=== PATIENT | male | born 1975 | race Caucasian/White ===

== ENCOUNTER 2017-02-05 15:48 | Inpatient (IN) ==
[2017-02-05] MEDS ORDERED: HEPARIN/NACL 0.9% 2 UNITS/ML 1,000 ML IV ONE (16:25)
[2017-02-05] MEDS ORDERED: LIDOCAINE 1%/EPI INJ 20 ML VIAL ONE (16:26)
--- NOTE | 2017-02-05 16:45 | History and Physical Update ---
Sedation H&P Update - History and Physical H&P was reviewed, the patient examined and there: are no changes in the patients condition since last H&P was completed. - Physical Exam Mental Status: alert and oriented Heart: regular rate and rhythm Lung: clear to auscultation Abdomen: within normal limits Vitals: within normal limits - Sedation Plan for Sedation: moderate Patient Consent: Procedure disscussed with patient and patinet has consented., Risks and benefits were discussed with patient,including infection,, bleeding, injury to surrounding structures, seizure, temporary nerve, Patient understands and accepts potential risks/benefits and agrees to, proceed. ASA Class: IV Airway Assessment: Class III: Soft palate, base of uvula visible
[2017-02-05] MEDS ORDERED: HYDROmorphone 2 MG/1 ML VIAL ONE (17:05)
[2017-02-05] MEDS ORDERED: fentaNYL 100 MCG/2 ML VIAL ONE (17:05)
[2017-02-05] MEDS ORDERED: ALTEPLASE 2 MG VIAL ONE (17:30)
[2017-02-05] MEDS ORDERED: ALTEPLASE 12 MG in SODIUM CHLORIDE 0.9% 240 ML IV ONE ×2 (17:39→17:42)
[2017-02-05] MEDS ORDERED: HEPARIN 5,000 UNIT/1 ML VIAL ONE (17:50)
[2017-02-05] MEDS ORDERED: NOREPINEPHRINE 4 MG/4 ML VIAL IV ONE (17:53)
--- NOTE | 2017-02-05 17:56 | Cardiac Catheterization ---
Date of Procedure:: 02/05/17 Pre-op Diagnosis: 41-year-old man who has a history of moderate chronic renal insufficiency presents with a syncopal episode that happened at 1230 today. By evaluation in the emergency room it appears fairly clear that the patient was suffering from pulmonary thromboembolic disease. He had a hypotensive episode responded to phenylephrine and IV fluids. His d-dimer was elevated and his echo showed right ventricular dilatation and the diagnosis was felt to be pulmonary thromboembolic disease. Because of his renal failure he was not a candidate for CT scan. He is for echoes catheter placement as this patient likely has a massive pulmonary embolus. He is critically ill and will benefit from thrombolysis and EKOS catheter placement. Post-op diagnosis: same Procedure: Description of procedure: Procedure performed: 1: Bilateral ekos catheter placement right and left pulmonary artery Description of procedure: After obtaining informed consent the patient was brought to the [facility] with a right groin was prepped and draped in the usual sterile manner. After local infiltration of anesthetic and intravenous sedation a needle stick was made to the right femoral vein and a 12 [place] venous sheath with two hemostatic ports was placed in the right femoral vein. Using a angled pigtail catheter and a J- wire the left main pulmonary artery was wired and the wire was extended to a segmental pulmonary artery on the left. This wire was maintained in place while the pigtail catheter was removed from the wire and an infusion catheter was advanced over the wire and positioned with its tip in a distal segmental pulmonary artery. This catheter was then connected to coolant infusion. Next using the other hemostatic access a second J-wire was placed using a angled pigtail catheter and positioned with its tip in a segmental right pulmonary artery. An infusion catheter was advanced over this J-wire and it was placed in the segmental right pulmonary artery. At this point tPA was infused in both the right and left drug ports. Next the ultrasound wires were placed through the coolant sheaths for both the right and left sides. Fluoroscopy confirmed good positioning and coolant was infusing as well as tPA. The patient was noted to be hypotensive and responded to intravenous fluids and Levophed and became hemodynamically stable and was transferred to the intensive care unit in stable condition. Please see the orders related to drug dosing and infusion sites. Surgeon / Physician: Cornelio Price Estimated blood loss: minimal Specimens: none sent Condition: stable - Medications / Follow-up
[2017-02-05] MEDS ORDERED: SODIUM CHLORIDE 0.9% 1,000 ML IV SCH ×2 (18:00→18:30)
[2017-02-05] MEDS ORDERED: ONDANSETRON 4 MG/2 ML VIAL IV PRN (18:08)
[2017-02-05] MEDS ORDERED: ALTEPLASE 12 MG in SODIUM CHLORIDE 0.9% 240 ML IV SCH (18:30)
[2017-02-05] MEDS ORDERED: NOREPINEPHRINE 8 MG in SODIUM CHLORIDE 0.9% 242 ML IV SCH (18:30)
[2017-02-05] MEDS ORDERED: HEPARIN DRIP 25,000 UNITS/500 ML PREMIX IV SCH (18:30)
[2017-02-05] MEDS: MORPHINE 2 MG/1 ML SYRINGE IV PRN ×2 (19:15→21:12)
[2017-02-05 19:31] LABS: PT Patient Result 10.3 SECS; Partial Thromboplastin Time 37.2 SECS (0-40)
[2017-02-05 19:41] LABS: Apearance,Urine CLOUDY (Clear); Bacteria,Urine Occasional /HPF (Few); Bilirubin,Urine Negative (Negative); Blood, Urine Small mg/dL (Negative); Glucose,Urine (UA) >=500 mg/dL (Negative); Ketones,Urine Negative (Negative); Mucus,Urine Occasional /LPF (Occasional); Nitrite,Urine Negative (Negative); Protein,Urine >=500 MG/DL; RBC,Urine 1 /HPF (0-4); Urine Color Yellow (Yellow); Urine Specific Gravity 1.024 (1.001-1.035); Urine Urobilinogen < 2.0 EU/DL (0.2-1.0); WBC,Urine 2 /HPF (0-6)
[2017-02-05] MEDS: DEXTROSE 5% NACL 0.9% 1,000 ML IV SCH (21:18)
[2017-02-06] MEDS: MORPHINE 2 MG/1 ML SYRINGE IV PRN (00:10)
[2017-02-06 03:02] LABS: Basophils # 0.1 10*3/uL (0.0-0.2); Basophils % 0.3 % (0.0-0.8); Eosinophils % 0.2 % (0.00-10.9); Hematocrit 48.2 VOL% (42.0-52.0); Hemoglobin 14.9 GM/DL (14.0-18.0); Immature Granulocytes % 5.7 %; Immature Granulocytes Absolute 1.35 #; Lymphocytes # 2.4 10*3/uL (1.4-4.0); Lymphocytes % 10.2 % (21.2-54.2); Mean Corpuscular HGB Conc 30.9 GM/DL (32-36); Mean Corpuscular Hemoglobin 30 PG (27-34); Mean Corpuscular Volume 95.8 FL (87-102); Mean Platelet Volume 10.3 FL (9.6-12.0); Monocytes # 1.5 10*3/uL (0.11-0.8); Monocytes % 6.1 % (1.7-12.7); NRBC # 0.04 10*3/uL; Neutrophils # 18.4 10*3/uL (1.4-7.4); Neutrophils % 77.5 % (38.7-73.9); Platelet Count 160 T/CUMM (130-400); Red Blood Count 5.03 MC/CUMM (3.8-5.5); Red Cell Distribution Width 13.5 % (9.3-17.3); White Blood Count 23.7 T/CUMM (4-12)
[2017-02-06] MEDS ORDERED: PHENYLEPHRINE DRIP 40 MG/250 ML PREMIX IV ONE (03:07)
[2017-02-06 03:11] LABS: INR 1.3
[2017-02-06] MEDS ORDERED: PHENYLEPHRINE DRIP 40 MG/250 ML PREMIX IV SCH (03:30)
[2017-02-06] MEDS ORDERED: MIDAZOLAM 10 MG/2 ML VIAL ONE (03:40)
[2017-02-06 03:44] LABS: Albumin 1.9 G/DL (3.4-5.0); Bilirubin,Total 0.6 MG/DL (0.2-1.0); Calcium 7.2 MG/DL (8.5-10.1); Osmolality,Calculated 296.3 MOS/KG (273-304); Potassium 5.8 MMOL/L (3.5-5.1)
[2017-02-06 03:45] LABS: ABG Base Excess -22.2 MMOL/L (-2.5-2.5); ABG HCO3 9.3 MMOL/L (20-26); ABG Oxygen Saturation 98.1 % (95-100); ABG PCO2 48.2 MM HG (35-48); ABG TCO2 10.5 MMOL/L (23-27); Allen Test Positive; Pt O2 Delivery Device BIPAP
--- NOTE | 2017-02-06 03:45 | Pulmonology Consult Note ---
Assessment and Plan (1) Submassive pulmonary embolism Status: Acute Assessment and plan: Blood pressures dropped. Requiring full dose pressures and oxygen. Will intubate. Have discussed the case with cardiovascular surgery to see if embolectomy by be needed in order. Discussed case with patient's . Current Visit: Yes (2) Cardiogenic shock Status: Acute Assessment and plan: On full dose Levophed. Getting IV fluids. Chest x-ray clear he does not wet. Current Visit: Yes (3) Renal insufficiency Status: Acute Assessment and plan: Creatinine around 2. History of renal insufficiency. Good urine output. Labs pending this morning. Current Visit: Yes History of Present Illness Chief complaint: Pulmonary embolus History of present illness: Mr. Diggs is a 41 year old male who had a syncopal episode near midday yesterday. He was found to have a large pulmonary embolus. He was taken to the [facility] and had Activase infusion started. He is become hypotensive early this morning with a systolic blood pressure in the mid 70s and severe hypoxemia. At present his O2 sat is 92% on night BiPAP 100% oxygen. He has chronic renal insufficiency and hypertension but no other significant underlying medical problems that the is aware of. Patient is responsive but struggling. He needs intubation. May need an embolectomy. Will ask cardiovascular surgery to see. Home Medications Medication Instructions Recorded Confirmed Type Verapamil Tab [Calan Tab] 40 mg PO BID 07/29/16 10/06/16 History Butalbital/Acet/Caff 50-325-40 1 tablet PO Q4H PRN 10/06/16 10/06/16 History [Fioricet 50-325-40 mg Tablet] Dextroamphetamine/Amphetamine 30 mg PO BID 10/06/16 10/06/16 History [Adderall 30 mg Tablet] Guaifenesin [Guaifenesin ER] 600 mg PO BID PRN #30 tab.er.12h 10/06/16 Rx hydroCHLOROthiazide 12.5 mg PO QAM 10/06/16 10/06/16 History [Hydrochlorothiazide] Allergies Allergy/AdvReac Type Severity Reaction Status Date / Time ibuprofen AdvReac Severe Unknown/Unable Verified 10/06/16 18:36 to obtain ROS unobtainable: due to mental status ( reports that patient had chest pain 2 days ago and had a normal EKG at that time) Exam (Pulmonay) H&P - Constitutional Vitals: Period Temp Pulse Resp BP Sys/Bar Pulse Ox Last 24 Hr 97 F-97.4 F 115-148 19-29 61-127/32-117 93-100 Exam: Blood pressure 75/60 pulse 120 afebrile. Patient responsive but tachypneic. Pupils reactive. Facemask BiPAP in place. Neck is supple. Chest sounds clear. Heart normal rate rhythm no murmurs. Abdomen soft nontender. Extremities no clubbing cyanosis or edema. Calves nontender. Medical,Surgical,& Family Hx - Medical History Cardio: History of: Hypertension Psychological: History of: ADHD Neurology: History of: Migraine No history of: Brain Aneurysm, Cerebral Hemorrhage, Cerebrovascular Accident , Cerebral Palsy, Dementia, Multiple Sclerosis, Parkinson's Disease, Peripheral Neuropathy, Seizures, TIA, Vertigo, Neurologocal Cancer Respiratory: No history of: Obstructive Sleep Apnea, Respiratory Problems - Surgical History Cardiac Surgeries: Patient Denies: Femoral-Popliteal Bypass Graft, Cardiac Catheterization, Cardiac Surgery, Carotid Endarterectomy, Internal Defibrillator, Vascular Access Devices Thoracic Surgeries: Patient denies;: Lobectomy Neurologic Surgeries: Patient denies: Brain Aneurysm, Cerebral Hemorrhage, Neurologic Surgery HEENT Surgeries: Patient denies: Carotid Endarterectomy, Eye Surgery, Tonsilectomy & Adenoidectomy Abdominal Surgeries: Patient denies: Abdominal Surgery, Appendectomy, Cholecystectomy, Colonoscopy , Gastric Bypass Surgery, EGD, Hernia Repair, Splenectomy Orthopedic Surgeries: Patient denies;: Total Knee Replacement - Social History Smoking Status: Never smoker Frequency of Alcohol Use: None Type of Drug Use: None Results - Labs CBC & BMP: 02/06/17 02:55 - Diagnostic Findings Procedure: Chest x-ray: image reviewed by me (Lungs are clear)
[2017-02-06 03:48] LABS: ABG PH 6.966 (7.35-7.45)
[2017-02-06 03:49] LABS: Troponin I Only 9.78 NG/ML (0.00-0.045)
[2017-02-06] MEDS ORDERED: ETOMIDATE 20 MG/10 ML VIAL IV ONE (03:50)
[2017-02-06] MEDS ORDERED: DOPamine 800 MG/250 ML PREMIX IV SCH (04:00)
[2017-02-06] MEDS ORDERED: SODIUM BICARBONATE 50 MEQ/50 ML SYRINGE IV ONE ×2 (04:02→04:03)
[2017-02-06] MEDS ORDERED: DOPamine 800 MG/250 ML PREMIX IV ONE (04:02)
--- NOTE | 2017-02-06 04:16 | Operative Note ---
Date of procedure: 02/06/17 (Orotracheal intubation) Pre-op diagnosis: Respiratory failure, pulmonary embolus Post-op diagnosis: same Procedure: After an appropriate timeout to be sure we were dealing with Jean-Claude Diggs, the patient was improved with 100% oxygen. 2 mg of Versed was given intravenously. Using the glide scope 7.5 [place] orotracheal tube was advanced into the vocal cords under direct vision. Color change on the CO2 monitor was appropriate yellow to purple. Chest x-ray showed ET tube tube tip about 2-3 cm above the monica. Lungs clear on x-ray. Patient placed on mechanical ventilation. Anesthesia: conscious sedation Surgeon / Physician: Sal Hawkins Estimated blood loss: none Specimens: none sent Condition: critical Disposition: ICU (Actually cc) Results - Labs CBC & BMP: 02/06/17 02:55 02/06/17 02:55 Discharge Plan - Discharge Medications No Action Verapamil Tab [Calan Tab] 40 mg PO BID Butalbital/Acet/Caff 50-325-40 [Fioricet 50-325-40 mg Tablet] 1 tablet PO Q4H PRN PRN Reason: Headache Dextroamphetamine/Amphetamine [Adderall 30 mg Tablet] 30 mg PO BID hydroCHLOROthiazide [Hydrochlorothiazide] 12.5 mg PO QAM Guaifenesin [Guaifenesin ER] 600 mg PO BID PRN #30 tab.er.12h PRN Reason: Cough - Follow Up or Referral - Forms/Instructions
[2017-02-06 04:19] LABS: Band Neutrophils 1 % (0-10); Eosinophils 1 % (0-10); Lymphocytes 11 % (20-55); Myelocytes 1 %; Segmented Neutrophils 80 % (50-85)
[2017-02-06 04:20] LABS: Platelet Estimate Normal
[2017-02-06 04:21] LABS: Atypical Lymphocytes Few; Polychromasia Few; Total Cells Counted 100
--- NOTE | 2017-02-06 04:21 | Cardiothoracic Consult ---
Assessment and Plan - Time spent with patient Time spent with patient: Greater than 30 minutes (1) Submassive pulmonary embolism Status: Acute Assessment and plan: 41-year-old male with submassive pulmonary embolism in the distal left main/ lobar pulmonary artery. He has ongoing infusion of TPA as well as heparin drip. Upon my evaluation he was found to have hypotension however he continues to have acceptable oxygenation at this point. I had a discussion with Dr. Price on the phone as well as Dr. Hawkins. My understanding since there is no CT scan that the pulmonary embolus is in the distal left main/lobar pulmonary artery. With the patient having ongoing TPA as well as heparin drip and the embolus is not proximal and the main pulmonary artery I felt that the best chance that the patient would have is to continue infusion of the TPA with management of his hemodynamics accordingly. With him having ongoing TPA and heparin drip he would be a very high risk for bleeding and with embolus being distal as described by the cath report I feel that pulmonary embolectomy would not be of help to this patient. Current Visit: Yes History of Present Illness - Data of Consult Patient: new to practice Consult date: 02/06/17 - Consult Narrative Reason for consult: PE History of present illness: Mr. Diggs is a 41 year old male who was found to have pulmonary embolus. The patient had a syncopal episode and on arriving to the ER his workup revealed a right cardiac strain and across CABG he did not get a CT scan and he was taken to the [facility] and he was found to have a distal left main/lobar pulmonary artery embolus. With the use of a close catheter he has ongoing TPA. He deteriorated significantly in the past few minutes and they got called for evaluation for possible pulmonary embolectomy. CC: Cornelio Price MD - Home Medications and Allergies Home Medications: Home Medications Medication Instructions Recorded Confirmed Type Verapamil Tab [Calan Tab] 40 mg PO BID 07/29/16 10/06/16 History Butalbital/Acet/Caff 50-325-40 1 tablet PO Q4H PRN 10/06/16 10/06/16 History [Fioricet 50-325-40 mg Tablet] Dextroamphetamine/Amphetamine 30 mg PO BID 10/06/16 10/06/16 History [Adderall 30 mg Tablet] Guaifenesin [Guaifenesin ER] 600 mg PO BID PRN #30 tab.er.12h 10/06/16 Rx hydroCHLOROthiazide 12.5 mg PO QAM 10/06/16 10/06/16 History [Hydrochlorothiazide] Allergies/Adverse Reactions: Allergies Allergy/AdvReac Type Severity Reaction Status Date / Time ibuprofen AdvReac Severe Unknown/Unable Verified 10/06/16 18:36 to obtain ROS unobtainable: due to endotracheal tube Medical,Surgical,& Family Hx - Medical History Cardio: History of: Hypertension Psychological: History of: ADHD Neurology: History of: Migraine No history of: Brain Aneurysm, Cerebral Hemorrhage, Cerebrovascular Accident , Cerebral Palsy, Dementia, Multiple Sclerosis, Parkinson's Disease, Peripheral Neuropathy, Seizures, TIA, Vertigo, Neurologocal Cancer Respiratory: No history of: Obstructive Sleep Apnea, Respiratory Problems - Surgical History Cardiac Surgeries: Patient Denies: Femoral-Popliteal Bypass Graft, Cardiac Catheterization, Cardiac Surgery, Carotid Endarterectomy, Internal Defibrillator, Vascular Access Devices Thoracic Surgeries: Patient denies;: Lobectomy Neurologic Surgeries: Patient denies: Brain Aneurysm, Cerebral Hemorrhage, Neurologic Surgery HEENT Surgeries: Patient denies: Carotid Endarterectomy, Eye Surgery, Tonsilectomy & Adenoidectomy Abdominal Surgeries: Patient denies: Abdominal Surgery, Appendectomy, Cholecystectomy, Colonoscopy , Gastric Bypass Surgery, EGD, Hernia Repair, Splenectomy Orthopedic Surgeries: Patient denies;: Total Knee Replacement - Social History Smoking Status: Never smoker Frequency of Alcohol Use: None Type of Drug Use: None Physical Examination Vital Signs Pulse Resp BP Pulse Ox 148 H 28 H 106/62 94 L 02/05/17 16:30 02/05/17 16:30 02/05/17 16:30 02/05/17 16:30 Neck: Present: Supple Neck Cardiac: Present: Regular Rate, Regular Rhythm, Tachycardia Result/EKG - Labs CBC & BMP: 02/06/17 02:55 02/06/17 02:55 Labs: Laboratory Results - last 24 hr 02/05/17 02/05/17 02/05/17 18:30 19:10 21:35 WBC RBC Hgb Hct MCV MCH MCHC RDW Plt Count MPV Neut % (Auto) Lymph % (Auto) Nicholas % (Auto) Eos % (Auto) Baso % (Auto) Neut # (Auto) Lymph # (Auto) Nicholas # (Auto) Eos # (Auto) Baso # (Auto) Immature Gran % Nucleated RBC % Immature Gran # Nucleated RBCs # INR 1.0 PT Patient/Control Mix 10.3 Fibrinogen 481 H Circ Anticoag PTT 37.2 ABG pH ABG pCO2 ABG pO2 ABG HCO3 ABG Total CO2 ABG O2 Saturation ABG Base Excess FiO2 Sodium Potassium Chloride Carbon Dioxide Anion Gap BUN Creatinine GFR Calculation BUN/Creatinine Ratio Glucose Calculated Osmolality Calcium Total Bilirubin Alkaline Phosphatase Troponin I 7.550 H Total Protein Albumin Globulin Albumin/Globulin Ratio Urine Color Yellow Urine Appearance Cloudy Urine pH 5.0 Ur Specific [place] 1.024 Urine Protein >=500 Urine Glucose (UA) >=500 Urine Ketones Negative Urine Blood Small Urine Nitrate Negative Urine Bilirubin Negative Urine Urobilinogen < 2.0 H Urine Leukocytes Negative Urine RBC 1 Urine WBC 2 Urine Bacteria Occasional Urine Mucus Occasional Ur Culture Indicated? Not indicated 02/06/17 02/06/17 02/06/17 02:55 02:55 02:55 WBC 23.7 H RBC 5.03 Hgb 14.9 Hct 48.2 MCV 95.8 MCH 30 MCHC 30.9 L RDW 13.5 Plt Count 160 MPV 10.3 Neut % (Auto) 77.5 H Lymph % (Auto) 10.2 L Nicholas % (Auto) 6.1 Eos % (Auto) 0.2 Baso % (Auto) 0.3 Neut # (Auto) 18.4 H Lymph # (Auto) 2.4 Nicholas # (Auto) 1.5 H Eos # (Auto) 0.0 Baso # (Auto) 0.1 Immature Gran % 5.7 Nucleated RBC % 0.2 Immature Gran # 1.35 Nucleated RBCs # 0.04 INR 1.3 PT Patient/Control Mix 14.0 D Fibrinogen Circ Anticoag PTT ABG pH ABG pCO2 ABG pO2 ABG HCO3 ABG Total CO2 ABG O2 Saturation ABG Base Excess FiO2 Sodium 141 Potassium 5.8 H Chloride 110 H Carbon Dioxide 13 L Anion Gap 23.8 H BUN 41 H Creatinine 4.30 H GFR Calculation 20 BUN/Creatinine Ratio 9.00 Glucose 209 H Calculated Osmolality 296.3 Calcium 7.2 L Total Bilirubin 0.60 Alkaline Phosphatase 49 Troponin I 9.780 H D Total Protein 5.0 L Albumin 1.9 L Globulin 3.1 Albumin/Globulin Ratio 0.6 L Urine Color Urine Appearance Urine pH Ur Specific [place] Urine Protein Urine Glucose (UA) Urine Ketones Urine Blood Urine Nitrate Urine Bilirubin Urine Urobilinogen Urine Leukocytes Urine RBC Urine WBC Urine Bacteria Urine Mucus Ur Culture Indicated? 02/06/17 03:28 WBC RBC Hgb Hct MCV MCH MCHC RDW Plt Count MPV Neut % (Auto) Lymph % (Auto) Nicholas % (Auto) Eos % (Auto) Baso % (Auto) Neut # (Auto) Lymph # (Auto) Nicholas # (Auto) Eos # (Auto) Baso # (Auto) Immature Gran % Nucleated RBC % Immature Gran # Nucleated RBCs # INR PT Patient/Control Mix Fibrinogen Circ Anticoag PTT ABG pH 6.966 L* ABG pCO2 48.2 H ABG pO2 248.0 H ABG HCO3 9.3 L ABG Total CO2 10.5 L ABG O2 Saturation 98.1 ABG Base Excess -22.2 L FiO2 100.00 Sodium Potassium Chloride Carbon Dioxide Anion Gap BUN Creatinine GFR Calculation BUN/Creatinine Ratio Glucose Calculated Osmolality Calcium Total Bilirubin Alkaline Phosphatase Troponin I Total Protein Albumin Globulin Albumin/Globulin Ratio Urine Color Urine Appearance Urine pH Ur Specific [place] Urine Protein Urine Glucose (UA) Urine Ketones Urine Blood Urine Nitrate Urine Bilirubin Urine Urobilinogen Urine Leukocytes Urine RBC Urine WBC Urine Bacteria Urine Mucus Ur Culture Indicated?
--- NOTE | 2017-02-06 04:22 | Event Note ---
Discussed case with Dr. Renan Andres who came and reviewed the patient. Pulmonary emboli or apparently to distal to consider surgery. I agree with this. At the present time his systolic blood pressure has come up to 113 with Levophed and dopamine. We have given bicarb to correct his acidosis. He has worsening renal function with creatinine up to 4.3. Will ask nephrology to see this morning.
[2017-02-06] MEDS ORDERED: VECURONIUM 10 MG VIAL IV ONE ×2 (04:28→04:30)
[2017-02-06] MEDS ORDERED: SODIUM ACETATE 100 MEQ in DEXTROSE 5% 1,000 ML IV SCH (05:00)
[2017-02-06] MEDS ORDERED: MIDAZOLAM 100 MG in SODIUM CHLORIDE 0.9% 80 ML IV SCH (05:00)
--- NOTE | 2017-02-06 05:13 | Event Note ---
Patient had cardiac arrest at about 0440. CPR undertaken with closed chest massage and multiple doses of epinephrine as well as bicarb. Was on Levophed and dopamine infusion. Patient never had a pulse on his own and after brief pulseless electrical activity did not have any further rectal activity. After 25 minutes of CPR his pupils were dilated and fixed and he was totally unresponsive. Had no spontaneous pulse. CPR was discontinued patient at approximately 0505. I discussed the case with patient's family. Dr. Price has discussed with them as well. Cause of was cardiac arrest secondary to massive pulmonary embolism.
--- NOTE | 2017-02-06 05:27 | Cardiology History & Physical ---
Assessment and Plan (1) Cardiogenic shock Status: Acute Assessment and plan: Patient has severe pulmonary hypertension and cardiogenic hypotension related to a large/massive pulmonary embolus. He is being treated aggressively with local thrombolysis and anticoagulation. Current Visit: Yes (2) Renal insufficiency Status: Acute Assessment and plan: Creatinine reported previously of 2.4. Lab work here is pending. Current Visit: Yes (3) Submassive pulmonary embolism Status: Acute Assessment and plan: Patient has been diagnosed with a submassive pulmonary embolus. He is hypotensive requiring pressors for support. He is critically ill. Current Visit: Yes History of Present Illness Chief complaint: I am short of breath and hurting in my chest History of present illness: Mr. Diggs is a 41 year old male who apparently has a history of chronic renal insufficiency with creatinines in the 2.4 range. He presented to [facility] with severe shortness of breath and having had a syncopal episode at roughly 12:30 PM on 05 February. Workup there revealed negative lower extremity venous Dopplers and echocardiogram that showed a massively enlarged right ventricle with normal LV function and an elevated d-dimer. The emergency room physician at [facility] felt that this strongly indicated presence of a large pulmonary embolus. Based on right ventricular size it appeared to be a large main pulmonary artery embolus. Patient was hypotensive and tachycardic responded to intravenous Levophed. Because of the patient's renal insufficiency was felt that he was not a candidate for CT PA gram and the clinical suspicion was so high that we were called to perform localized treatment of the pulmonary embolus with tissue plasminogen after activator and local echo treatment to break up the thrombus. This was performed with an EKOS catheter which was performed without difficulty. The patient was hypotensive post procedure and for that reason we obtained an echocardiogram just to be certain there was not evidence of a pericardial effusion and there was no evidence of an effusion. LV function appeared to be normal. The right ventricle continued massively enlarged. Prior to placement of the thrombolytic and ultrasound catheters we did inject a small amount of contrast to obtain a diagnosis and by 20 cc injection a large filling defect was noted on the left side consistent with thrombus. The patient now is critically ill requiring pressors for blood pressure support currently. Findings and plans for treatment were discussed with the family. Home Medications Medication Instructions Recorded Confirmed Type Verapamil Tab [Calan Tab] 40 mg PO BID 07/29/16 10/06/16 History Butalbital/Acet/Caff 50-325-40 1 tablet PO Q4H PRN 10/06/16 10/06/16 History [Fioricet 50-325-40 mg Tablet] Dextroamphetamine/Amphetamine 30 mg PO BID 10/06/16 10/06/16 History [Adderall 30 mg Tablet] Guaifenesin [Guaifenesin ER] 600 mg PO BID PRN #30 tab.er.12h 10/06/16 Rx hydroCHLOROthiazide 12.5 mg PO QAM 10/06/16 10/06/16 History [Hydrochlorothiazide] Allergies Allergy/AdvReac Type Severity Reaction Status Date / Time ibuprofen AdvReac Severe Unknown/Unable Verified 10/06/16 18:36 to obtain Medical,Surgical,& Family Hx - Medical History Cardio: History of: Hypertension Psychological: History of: ADHD Neurology: History of: Migraine No history of: Brain Aneurysm, Cerebral Hemorrhage, Cerebrovascular Accident , Cerebral Palsy, Dementia, Multiple Sclerosis, Parkinson's Disease, Peripheral Neuropathy, Seizures, TIA, Vertigo, Neurologocal Cancer Respiratory: No history of: Obstructive Sleep Apnea, Respiratory Problems - Surgical History Cardiac Surgeries: Patient Denies: Femoral-Popliteal Bypass Graft, Cardiac Catheterization, Cardiac Surgery, Carotid Endarterectomy, Internal Defibrillator, Vascular Access Devices Thoracic Surgeries: Patient denies;: Lobectomy Neurologic Surgeries: Patient denies: Brain Aneurysm, Cerebral Hemorrhage, Neurologic Surgery HEENT Surgeries: Patient denies: Carotid Endarterectomy, Eye Surgery, Tonsilectomy & Adenoidectomy Abdominal Surgeries: Patient denies: Abdominal Surgery, Appendectomy, Cholecystectomy, Colonoscopy , Gastric Bypass Surgery, EGD, Hernia Repair, Splenectomy Orthopedic Surgeries: Patient denies;: Total Knee Replacement - Social History Smoking Status: Never smoker Frequency of Alcohol Use: None Type of Drug Use: None Cardiology Physical Exam - Constitutional Vitals: Vital Signs Temp Pulse Resp BP Pulse Ox 97 F L 117 H 19 75/63 100 02/06/17 00:00 02/06/17 01:41 02/06/17 01:00 02/06/17 01:41 02/06/17 00:00 Intake and Output 02/05/17 02/05/17 02/06/17 15:59 23:59 07:59 Intake Total 100 / 100 Output Total 35 / 35 0 / 0 Balance 65 / 65 0 / 0 Intake: IV 100 / 100 Levophed 8 mg In Ns 242 100 / 100 ml @ 2 MCG/MIN 3.75 mls/ hr IV TITRATE XIMENA Rx#: [id number] Output: Urine 35 / 35 0 / 0 Other: Voiding Method Indwelling Catheter Indwelling Catheter # Bowel Movements 0 Weight 104 kg Exam: Physical examination: General: The patient is awake and alert and oriented -3. Patient complains of pleuritic chest pain and dyspnea HEENT: Normocephalic, sclera are clear there are no lid xanthelasmas noted. Oral mucosa is free of cyanosis or pallor. Neck: The neck is supple without JVD. Carotid upstrokes are normal volume and amplitude. There is no audible bruit. There is no palpable thyroid. Trachea is midline. Chest: Lungs: The patient is in moderate respiratory distress. There are no inspiratory or expiratory rales or wheezes noted. Noted. Cardiovascular: The PMI is nondisplaced. There is a tachycardic rhythm. No murmur or rub is noted. S2 is increased. Abdomen: Abdomen is soft and nontender with normal active bowel sounds. There is no palpable mass or organomegaly noted. There is no midline bruit. Extremities exam: There is no cyanosis clubbing or edema. Skin: Skin is warm and dry without ecchymosis or urticaria or skin rash. There are no palpable nodules. Musculoskeletal: There is no kyphosis or scoliosis noted. Result/EKG - Labs CBC & BMP: 02/06/17 02:55 02/06/17 02:55 Labs: Laboratory Results - last 24 hr 02/05/17 02/05/17 02/05/17 18:30 19:10 21:35 WBC RBC Hgb Hct MCV MCH MCHC RDW Plt Count MPV Neut % (Auto) Lymph % (Auto) [place] % (Auto) Eos % (Auto) Baso % (Auto) Neut # (Auto) Lymph # (Auto) [place] # (Auto) Eos # (Auto) Baso # (Auto) Total Counted Immature Gran % Nucleated RBC % Immature Gran # Segmented Neutrophils Band Neutrophils Lymphocytes Monocytes Eosinophils Myelocytes Nucleated RBCs # Atypical Lymphocytes Platelet Estimate Polychromasia INR 1.0 PT Patient/Control Mix 10.3 Fibrinogen 481 H Circ Anticoag PTT 37.2 ABG pH ABG pCO2 ABG pO2 ABG HCO3 ABG Total CO2 ABG O2 Saturation ABG Base Excess FiO2 Sodium Potassium Chloride Carbon Dioxide Anion Gap BUN Creatinine GFR Calculation BUN/Creatinine Ratio Glucose Calculated Osmolality Calcium Total Bilirubin AST ALT Alkaline Phosphatase Troponin I 7.550 H Total Protein Albumin Globulin Albumin/Globulin Ratio Urine Color Yellow Urine Appearance Cloudy Urine pH 5.0 Ur Specific [place] 1.024 Urine Protein >=500 Urine Glucose (UA) >=500 Urine Ketones Negative Urine Blood Small Urine Nitrate Negative Urine Bilirubin Negative Urine Urobilinogen < 2.0 H Urine Leukocytes Negative Urine RBC 1 Urine WBC 2 Urine Bacteria Occasional Urine Mucus Occasional Ur Culture Indicated? Not indicated 02/06/17 02/06/17 02/06/17 02:55 02:55 02:55 WBC 23.7 H RBC 5.03 Hgb 14.9 Hct 48.2 MCV 95.8 MCH 30 MCHC 30.9 L RDW 13.5 Plt Count 160 MPV 10.3 Neut % (Auto) 77.5 H Lymph % (Auto) 10.2 L [place] % (Auto) 6.1 Eos % (Auto) 0.2 Baso % (Auto) 0.3 Neut # (Auto) 18.4 H Lymph # (Auto) 2.4 [place] # (Auto) 1.5 H Eos # (Auto) 0.0 Baso # (Auto) 0.1 Total Counted 100 Immature Gran % 5.7 Nucleated RBC % 0.2 Immature Gran # 1.35 Segmented Neutrophils 80 Band Neutrophils 1 Lymphocytes 11 L Monocytes 6 Eosinophils 1 Myelocytes 1 Nucleated RBCs # 0.04 Atypical Lymphocytes Few Platelet Estimate Normal Polychromasia Few INR 1.3 PT Patient/Control Mix 14.0 D Fibrinogen Circ Anticoag PTT ABG pH ABG pCO2 ABG pO2 ABG HCO3 ABG Total CO2 ABG O2 Saturation ABG Base Excess FiO2 Sodium 141 Potassium 5.8 H Chloride 110 H Carbon Dioxide 13 L Anion Gap 23.8 H BUN 41 H Creatinine 4.30 H GFR Calculation 20 BUN/Creatinine Ratio 9.00 Glucose 209 H Calculated Osmolality 296.3 Calcium 7.2 L Total Bilirubin 0.60 AST 1776 H ALT 1209 H Alkaline Phosphatase 49 Troponin I 9.780 H D Total Protein 5.0 L Albumin 1.9 L Globulin 3.1 Albumin/Globulin Ratio 0.6 L Urine Color Urine Appearance Urine pH Ur Specific [place] Urine Protein Urine Glucose (UA) Urine Ketones Urine Blood Urine Nitrate Urine Bilirubin Urine Urobilinogen Urine Leukocytes Urine RBC Urine WBC Urine Bacteria Urine Mucus Ur Culture Indicated? 02/06/17 03:28 WBC RBC Hgb Hct MCV MCH MCHC RDW Plt Count MPV Neut % (Auto) Lymph % (Auto) [place] % (Auto) Eos % (Auto) Baso % (Auto) Neut # (Auto) Lymph # (Auto) [place] # (Auto) Eos # (Auto) Baso # (Auto) Total Counted Immature Gran % Nucleated RBC % Immature Gran # Segmented Neutrophils Band Neutrophils Lymphocytes Monocytes Eosinophils Myelocytes Nucleated RBCs # Atypical Lymphocytes Platelet Estimate Polychromasia INR PT Patient/Control Mix Fibrinogen Circ Anticoag PTT ABG pH 6.966 L* ABG pCO2 48.2 H ABG pO2 248.0 H ABG HCO3 9.3 L ABG Total CO2 10.5 L ABG O2 Saturation 98.1 ABG Base Excess -22.2 L FiO2 100.00 Sodium Potassium Chloride Carbon Dioxide Anion Gap BUN Creatinine GFR Calculation BUN/Creatinine Ratio Glucose Calculated Osmolality Calcium Total Bilirubin AST ALT Alkaline Phosphatase Troponin I Total Protein Albumin Globulin Albumin/Globulin Ratio Urine Color Urine Appearance Urine pH Ur Specific [place] Urine Protein Urine Glucose (UA) Urine Ketones Urine Blood Urine Nitrate Urine Bilirubin Urine Urobilinogen Urine Leukocytes Urine RBC Urine WBC Urine Bacteria Urine Mucus Ur Culture Indicated?
--- NOTE | 2017-02-06 05:34 | Discharge Summary ---
Hospital Course - Hospital Course Hospital Course: This is a 41-year-old man who was transferred from [facility] for localized thrombolytic therapy and ultrasound treatment of what was felt to be a submassive pulmonary embolus. Because of his renal insufficiency he was not a candidate for CT PA gram. He underwent contrast injection 20 cc prior to placement of the infusion and ultrasound catheters. This was consistent with large left main pulmonary embolus. The patient's blood pressure was supported on intravenous pressors and volume. He became hypoxemic and pulmonary medicine was consulted and they were able to intubate and ventilate the patient. Unfortunately patient continued a hypotensive course and had cardiopulmonary arrest. He was unsuccessfully resuscitated and pronounced at 5:[address] Hawkins and myself discussed outcome with the patient's family. - Cause of Cause of : Irreversible cardiogenic shock secondary to massive pulmonary embolism Diagnosis - Discharge Diagnosis (1) Cardiogenic shock Status: Acute (2) Renal insufficiency Status: Acute (3) Submassive pulmonary embolism Status: Acute Discharge Plan - Discharge Data Disposition: - Discharge Medications No Action Verapamil Tab [Calan Tab] 40 mg PO BID Butalbital/Acet/Caff 50-325-40 [Fioricet 50-325-40 mg Tablet] 1 tablet PO Q4H PRN PRN Reason: Headache Dextroamphetamine/Amphetamine [Adderall 30 mg Tablet] 30 mg PO BID hydroCHLOROthiazide [Hydrochlorothiazide] 12.5 mg PO QAM Guaifenesin [Guaifenesin ER] 600 mg PO BID PRN #30 tab.er.12h PRN Reason: Cough - Follow Up or Referral - Forms/Instructions Exam - Constitutional Vitals: Period Temp Pulse Resp BP Sys/Bar Pulse Ox Last 24 Hr 97 F-97.4 F 115-148 19-29 61-127/32-117 93-100 Discharge Results Procedures and tests throughout hospitalization: Pending Orders 02/05/17 16:08 CL heart Routine 02/05/17 16:30 MRSA Surveillence, Inf Control Routine 02/06/17 03:19 XR chest 1V portable Stat 02/06/17 03:56 XR chest 1V portable Stat 02/06/17 04:13 Arterial Blood Gas Stat 02/06/17 06:15 Fibrinogen Q12H Partial Thromboplastin Time Q12H 02/06/17 18:15 Fibrinogen Q12H Partial Thromboplastin Time Q12H 02/07/17 04:00 Arterial Blood Gas IN AM Comp Blood Count Auto Diff IN AM 02/07/17 06:15 Fibrinogen Q12H Partial Thromboplastin Time Q12H 02/07/17 18:15 Fibrinogen Q12H Partial Thromboplastin Time Q12H 02/08/17 04:00 XR chest 1V portable IN AM Arterial Blood Gas IN AM Comp Blood Count Auto Diff IN AM 02/08/17 06:15 Fibrinogen Q12H Partial Thromboplastin Time Q12H 02/08/17 18:15 Fibrinogen Q12H Partial Thromboplastin Time Q12H 02/09/17 04:00 XR chest 1V portable IN AM Arterial Blood Gas IN AM 02/10/17 04:00 XR chest 1V portable IN AM Labs on day of discharge: Labs from last 24 hours 02/06/17 02/06/17 02/06/17 03:28 02:55 02:55 WBC RBC Hgb Hct MCV MCH MCHC RDW Plt Count MPV Neut % (Auto) Lymph % (Auto) [place] % (Auto) Eos % (Auto) Baso % (Auto) Neut # (Auto) Lymph # (Auto) [place] # (Auto) Eos # (Auto) Baso # (Auto) Total Counted Immature Gran % Nucleated RBC % Immature Gran # Segmented Neutrophils Band Neutrophils Lymphocytes Monocytes Eosinophils Myelocytes Nucleated RBCs # Atypical Lymphocytes Platelet Estimate Polychromasia INR 1.3 PT Patient/Control Mix 14.0 D Fibrinogen Circ Anticoag PTT ABG pH 6.966 L* ABG pCO2 48.2 H ABG pO2 248.0 H ABG HCO3 9.3 L ABG Total CO2 10.5 L ABG O2 Saturation 98.1 ABG Base Excess -22.2 L FiO2 100.00 Sodium 141 Potassium 5.8 H Chloride 110 H Carbon Dioxide 13 L Anion Gap 23.8 H BUN 41 H Creatinine 4.30 H GFR Calculation 20 BUN/Creatinine Ratio 9.00 Glucose 209 H Calculated Osmolality 296.3 Calcium 7.2 L Total Bilirubin 0.60 AST 1776 H ALT 1209 H Alkaline Phosphatase 49 Troponin I 9.780 H D Total Protein 5.0 L Albumin 1.9 L Globulin 3.1 Albumin/Globulin Ratio 0.6 L Urine Color Urine Appearance Urine pH Ur Specific [place] Urine Protein Urine Glucose (UA) Urine Ketones Urine Blood Urine Nitrate Urine Bilirubin Urine Urobilinogen Urine Leukocytes Urine RBC Urine WBC Urine Bacteria Urine Mucus Ur Culture Indicated? 02/06/17 02/05/17 02/05/17 02:55 21:35 19:10 WBC 23.7 H RBC 5.03 Hgb 14.9 Hct 48.2 MCV 95.8 MCH 30 MCHC 30.9 L RDW 13.5 Plt Count 160 MPV 10.3 Neut % (Auto) 77.5 H Lymph % (Auto) 10.2 L [place] % (Auto) 6.1 Eos % (Auto) 0.2 Baso % (Auto) 0.3 Neut # (Auto) 18.4 H Lymph # (Auto) 2.4 [place] # (Auto) 1.5 H Eos # (Auto) 0.0 Baso # (Auto) 0.1 Total Counted 100 Immature Gran % 5.7 Nucleated RBC % 0.2 Immature Gran # 1.35 Segmented Neutrophils 80 Band Neutrophils 1 Lymphocytes 11 L Monocytes 6 Eosinophils 1 Myelocytes 1 Nucleated RBCs # 0.04 Atypical Lymphocytes Few Platelet Estimate Normal Polychromasia Few INR 1.0 PT Patient/Control Mix 10.3 Fibrinogen 481 H Circ Anticoag PTT 37.2 ABG pH ABG pCO2 ABG pO2 ABG HCO3 ABG Total CO2 ABG O2 Saturation ABG Base Excess FiO2 Sodium Potassium Chloride Carbon Dioxide Anion Gap BUN Creatinine GFR Calculation BUN/Creatinine Ratio Glucose Calculated Osmolality Calcium Total Bilirubin AST ALT Alkaline Phosphatase Troponin I 7.550 H Total Protein Albumin Globulin Albumin/Globulin Ratio Urine Color Urine Appearance Urine pH Ur Specific [place] Urine Protein Urine Glucose (UA) Urine Ketones Urine Blood Urine Nitrate Urine Bilirubin Urine Urobilinogen Urine Leukocytes Urine RBC Urine WBC Urine Bacteria Urine Mucus Ur Culture Indicated? 02/05/17 18:30 WBC RBC Hgb Hct MCV MCH MCHC RDW Plt Count MPV Neut % (Auto) Lymph % (Auto) [place] % (Auto) Eos % (Auto) Baso % (Auto) Neut # (Auto) Lymph # (Auto) [place] # (Auto) Eos # (Auto) Baso # (Auto) Total Counted Immature Gran % Nucleated RBC % Immature Gran # Segmented Neutrophils Band Neutrophils Lymphocytes Monocytes Eosinophils Myelocytes Nucleated RBCs # Atypical Lymphocytes Platelet Estimate Polychromasia INR PT Patient/Control Mix Fibrinogen Circ Anticoag PTT ABG pH ABG pCO2 ABG pO2 ABG HCO3 ABG Total CO2 ABG O2 Saturation ABG Base Excess FiO2 Sodium Potassium Chloride Carbon Dioxide Anion Gap BUN Creatinine GFR Calculation BUN/Creatinine Ratio Glucose Calculated Osmolality Calcium Total Bilirubin AST ALT Alkaline Phosphatase Troponin I Total Protein Albumin Globulin Albumin/Globulin Ratio Urine Color Yellow Urine Appearance Cloudy Urine pH 5.0 Ur Specific [place] 1.024 Urine Protein >=500 Urine Glucose (UA) >=500 Urine Ketones Negative Urine Blood Small Urine Nitrate Negative Urine Bilirubin Negative Urine Urobilinogen < 2.0 H Urine Leukocytes Negative Urine RBC 1 Urine WBC 2 Urine Bacteria Occasional Urine Mucus Occasional Ur Culture Indicated? Not indicated DS: Provider Date of admission: 02/05/17 16:25 Primary care physician: . No PCP Attending physician on admission: Cornelio Price MD Consults: 02/05/17 19:19 Consult to Physician [CONS] Routine Comment: Consulting Provider: Isak Martinez Jr. When should Consulting Provider be notified: In am 02/06/17 02:45 Consult to Physician [CONS] Routine Comment: Consulting Provider: Sal Hawkins Consulting Provider Notified: Yes When should Consulting Provider be notified: Now Person Notified: dr. contreras Date Notified: 02/06/17 Time Notified: 02:50 02/06/17 03:46 Consult to Physician [CONS] Routine Comment: Consulting Provider: Trish Sun Consulting Provider Notified: Yes When should Consulting Provider be notified: Now Person Notified: dr. odom Date Notified: 02/06/17 Time Notified: 03:46 02/06/17 04:23 Consult to Physician [CONS] Routine Comment: Consulting Provider: Consult to Specialist Group: Nephrology When should Consulting Provider be notified: In am Discharging clinician: Cornelio Price MD
--- NOTE | 2017-02-06 05:42 | ECHO Report ---
Jean-Claude Diggs Exam Date: 02/05/2017 18:33 Referring Physician: Technologist: Daisy Tuttle MIRNA Age: 41 Ht (in): Wt (lb): Gender: M Exam Location: [facility] Echo Indications: Pulmonary emboli, s/p EKOS, Limited study to r/o pericardial effusion BP: / HR: Rhythm: Sinus Technical Quality: limited study IMPRESSIONS Massive right ventricular enlargement LV normal size with normal contractility Paradoxic septal motion consistent with RV volume/pressure overload. Echodense masses right ventricle consistent with infusion catheters No evidence of pericardial effusion MEASUREMENTS (Male / Female) Normal Values FINDINGS Left Ventricle Right Ventricle Right Atrium Left Atrium Mitral Valve Aortic Valve Tricuspid Valve Pulmonic Valve Pericardium Aorta Cornelio Price MD (Electronically Signed) Final Date: 06 February 2017 05:39
[2017-02-06 06:20] VITALS: BP 113/73
[2017-02-06] MEDS: DEXTROSE 5% NACL 0.9% 1,000 ML IV SCH (07:28)
--- NOTE | 2017-02-06 07:53 | XRay Report ---
XR chest 1V portable Indication: Shortness of breath. Chest one view: No comparison. Heart size is normal. 2 catheter-like devices project over the mediastinum, apparently EKOS catheters. Lung volumes are low with atelectasis. Lungs are otherwise clear. Pleural spaces are clear. Impression: Pulmonary hypoinflation. EKOS catheters. PROCEDURE INTERPRETED AT [facility] DEPARTMENT OF RADIOLOGY Final Report Signed by: Joaquim Martinez M.D.
--- NOTE | 2017-02-06 07:54 | XRay Report ---
XR chest 1V portable Indication: Intubated. Chest one view: Since 0313 hours, endotracheal tube is now present terminating 4 cm cephalad the monica. The remainder of the exam is unchanged. Impression: Adequate intubation. PROCEDURE INTERPRETED AT [facility] DEPARTMENT OF RADIOLOGY Final Report Signed by: Joaquim Martinez M.D.
[2017-02-06] MEDS ORDERED: PANTOPRAZOLE 40 MG VIAL IV SCH (09:00)
--- NOTE | 2017-02-08 11:48 | Physician Query Form ---
CLICK EDIT DOCUMENT TO SELECT QUERY ANSWER --> OK --> SIGN Crys Campbell RN, CCDS Certified Clinical Wood Finisher Apprentice W) [phone] (f) [phone] [email or web address]: Make your selection(s) from the choices in EACH section by typing an "x" and enter comments in the comment section. Please use your independent medical judgment in providing your response. This request does not imply that any particular answer is desired or expected. CLINICAL INDICATORS: (Providers should not edit this section) Patient admitted with documented Creatinine of 2.4 with history of chronic renal insufficiency with Creatinines in the 2.4 range, Cr elevated to 4.3 with cardiogenic shock, "He is hypotensive requiring pressors for support" Clarify which of the following most accurately represents the patient's renal status: ( X) Acute kidney injury (non-traumatic) ( ) Acute renal failure ( ) Acute renal failure with acute tubular necrosis ( ) Other, please specify: ( ) Clinically unable to determine COMMENTS: PLEASE ALSO DOCUMENT RESPONSE IN PROGRESS NOTES AND/OR DISCHARGE SUMMARY Use of terms such as suspected, likely, or probable (associated with a specific diagnosis that is being evaluated, monitored, or treated as if it exists) are acceptable and can be restated in the discharge summary if not ruled out. MTDD
== END 2017-02-06 05:02 | disposition expired | DRG 134 ==
LOC: N.CC 16:25
PROVIDERS: ADMIT Internal Medicine Interventional Cardiology; ATTEND Internal Medicine Interventional Cardiology